=== PATIENT | male | born 1975 | race Caucasian/White ===

== ENCOUNTER 2016-08-21 11:05 | Emergency (ER) | payer MEDICARE ==
[2016-08-21] MEDS ORDERED: methylPREDNISolone ACETATE 40 MG/ML VIAL IM ONE (12:01)
--- NOTE | 2016-08-21 12:06 | ED.PDOC ---
History of Present Illness - General Chief Complaint: ENT Problem Stated Complaint: right ear pain and facial pain Time Seen by Provider: 08/21/16 12:01 Source: patient, RN notes reviewed, Vital Signs reviewed Exam Limitations: no limitations - History of Present Illness Initial Comments: This 41 y/o male comes in complaining of right ear pain and facial pain. He has a history of allergies and has received prednisone for this. He does better when he is taking the prednisone, however once he is finished, the symptoms return. He has been on antibiotics recently. He is a poor historian and timing of medications and what he is on is difficult to ascertain. His right ear feels like there is fluid behind it and his upper mouth hurts. He has tried Flonase, however when he takes it, his throat feels like it is closing up. He denies any shortness of breath or fever/chills. Timing/Duration: intermittent Severity: severe Improving Factors: medication - prednisone Worsening Factors: nothing Associated Symptoms: other - ear pain, facial pain Allergies/Adverse Reactions: Allergies Metformin Allergy (Severe, Verified 09/05/15 13:37) Other causes GI bleeding after prolonged use Shellfish Allergy Allergy (Severe, Verified 09/05/15 13:37) Anaphylaxis Bee Venom Allergy (Verified 09/05/15 13:37) Other swelling Home Medications: Ambulatory Orders Allopurinol [Zyloprim] 100 mg PO DAILY #30 tab 03/20/15 Metoprolol Succinate [Metoprolol Succinate ER] 100 mg PO BEDTIME 05/22/15 Alprazolam [Xanax] 1 mg PO DAILY 09/05/15 Pantoprazole Sodium [Protonix] 40 mg PO DAILY 09/05/15 Azelastine Nasal [place] [Astelin Nasal [place]] 30 ml CHARLES BID PRN #1 bttl 08/21/16 Hydroxychloroquine Sulfate [Hydroxychloroquine Sulfat] 08/21/16 Methotrexate Sodium [Methotrexate] 2.5 mg PO 08/21/16 Review of Systems - Review of Systems Constitutional: States: no symptoms reported. Denies: chills, fever EENTM: States: ear pain, nose congestion Respiratory: States: no symptoms reported. Denies: short of breath Cardiology: States: no symptoms reported. Denies: chest pain Gastrointestinal/Abdominal: States: no symptoms reported. Denies: constipation , diarrhea, nausea, vomiting Genitourinary: States: no symptoms reported. Denies: dysuria Musculoskeletal: States: joint pain, muscle pain, muscle stiffness Skin: States: no symptoms reported Neurological: States: no symptoms reported Endocrine: States: no symptoms reported Hematologic/Lymphatic: States: other - autoimmune disorder Past Medical History (General) - Patient Medical History Hx Seizures: No Hx Stroke: No Hx Dementia: No Hx Asthma: No Hx of COPD: No Hx Cardiac Disorders: No Hx Congestive Heart Failure: No Hx Pacemaker: No Hx Hypertension: No Hx Thyroid Disease: No Hx Diabetes: No Hx Gastroesophageal Reflux: No Hx Renal Disease: No Hx Cancer: No Hx of HIV: No Hx Hepatitis C: No Hx MRSA: No Surgical History: other - Vaccination History Hx Tetanus, Diphtheria Vaccination: Yes Hx Influenza Vaccination: Yes Hx Pneumococcal Vaccination: Yes Immunizations Up to Date: Yes - Social History Hx Tobacco Use: No Hx Chewing Tobacco Use: No Hx Alcohol Use: No Hx Substance Use: No Hx Substance Use Treatment: No Hx Depression: No Feels Threatened In Home Enviroment: No Feels Threatened In a Relationship: No Hx Physical Abuse: No Hx Emotional Abuse: No Hx Suspected Abuse: No - Female History Patient is a Female of Child Bearing Age (10 -59 yrs old): No Patient : No Family Medical History - Family History Father Living Status: Hx Family Asthma: No Hx Family Congestive Heart Failure: Yes Hx Family Hypertension: Yes Hx Family Diabetes: Yes Physical Exam - Physical Exam General Appearance: Alert, No apparent distress, Obese Eye Exam: bilateral normal Ears, Nose, Throat: hearing grossly normal, abnormal TM (R) - + serous fluid behind TM, abnormal TM (L) - occluded by cerumen, nasal congestion, other - No sinus tenderness Neck: non-tender, full range of motion, normal inspection - No LAD Respiratory: lungs clear, normal breath sounds, no respiratory distress Cardiovascular/Chest: normal peripheral pulses, regular rate, rhythm, no edema, no murmur Gastrointestinal/Abdominal: normal bowel sounds, non tender, soft Extremity: normal range of motion Neurologic: alert, normal mood/affect, oriented x 3 Skin Exam: normal color, warm/dry Progress - Results/Orders Results/Orders: 08/21/16 11:12 Temperature 98 F Pulse Rate [ 82 Left Radial] Respiratory 18 Rate Blood Pressure 153/98 [Left Arm] O2 Sat by Pulse 98 Oximetry Departure - Departure Clinical Impression: Seasonal allergies Allergic rhinitis Qualifiers: Allergic rhinitis type: unspecified Qualifier Code: (J30.9) Allergic rhinitis, unspecified Time of Disposition: 12:18 Disposition: Discharge to Home or Self Care Departure Forms: ED Discharge - Pt. Copy, Patient Portal Self Enrollment Instructions: Allergic Rhinitis, DI for Allergic Rhinitis Prescriptions: Azelastine Nasal [place] [Astelin Nasal [place]] 30 ml CHARLES BID PRN #1 bttl PRN Reason: Rhinitis Home Medications: Ambulatory Orders Allopurinol [Zyloprim] 100 mg PO DAILY #30 tab 03/20/15 Metoprolol Succinate [Metoprolol Succinate ER] 100 mg PO BEDTIME 05/22/15 Alprazolam [Xanax] 1 mg PO DAILY 09/05/15 Pantoprazole Sodium [Protonix] 40 mg PO DAILY 09/05/15 Azelastine Nasal [place] [Astelin Nasal [place]] 30 ml CHARLES BID PRN #1 bttl 08/21/16 Hydroxychloroquine Sulfate [Hydroxychloroquine Sulfat] 08/21/16 Methotrexate Sodium [Methotrexate] 2.5 mg PO 08/21/16 Additional Instructions: NetiPot - use twice daily. Use distilled water to mix saline packet. Zyrtec 10 mg Daily Recommend referral to behavioral health case manager Follow up with PCP if symptoms persist or ED if symptoms worsen.
[2016-08-21 12:26] VITALS: BP 153/92; TEMP 98.4; O2SAT 97
== END 2016-08-21 12:24 | disposition home or self-care (01) ==
LOC: ER 11:05
DX: J30.9 Allergic rhinitis, unspecified (principal); Z88.8 Allergy status to other drugs, medicaments and biological substances; Z91.013 Allergy to seafood; Z91.030 Bee allergy status; Z79.899 Other long term (current) drug therapy

== ENCOUNTER 2017-04-21 12:46 | Emergency (ER) | payer MEDICARE ==
[2017-04-21] MEDS ORDERED: LIDOCAINE VIS-MYLANTA 30 ML UD PO ONE ×2 (12:58→13:03)
[2017-04-21] MEDS ORDERED: HYDROmorphone HCL INJ 2 MG/ML VIAL IV ONE (13:02)
[2017-04-21] MEDS ORDERED: ONDANSETRON INJ 4 MG/2 ML VIAL IV ONE (13:02)
--- NOTE | 2017-04-21 13:06 | ED.PDOC ---
History of Present Illness - General Time Seen by Provider: 04/21/17 12:50 Source: patient Exam Limitations: no limitations - History of Present Illness Initial Comments: the patient is a 42-year-old male presenting to the emergency room secondary to acute onset of chest pain along with shortness of breath and associatedleft upper abdominal pain with nausea and vomiting just prior to arrival. The patient reports the discomfort started when he was getting out of his van. He was not doing anything stressful. He had not eaten lunch yet. He checked his blood pressure when he started feeling bad and it was elevated in the 180s. No syncope but he did get diaphoretic. Upon arrival EMS gave him 2 nitroglycerin and the dose of aspirin neither of which seemed to have helped his symptoms. He reports the pain is still severe currently. He reports he threw up 3 times but no obvious blood in the vomitus. He has been passing gas and has been having bowel movements but no diarrhea. No recent fever. He does have a history of rheumatoid arthritis and was recently taken off methotrexate. He apparently was recently put on Celebrex. He does have a significant significant history of gastritisas well as gout. Timing/Duration: 1/2 hour Severity: severe Improving Factors: nothing Worsening Factors: nothing Associated Symptoms: chest pain, diaphoresis, loss of appetite, malaise, nausea/ vomiting, shortness of breath Allergies/Adverse Reactions: Allergies Bee Venom Allergy (Severe, Verified 04/21/17 13:28) Other swelling Metformin Allergy (Severe, Verified 09/05/15 13:37) Other causes GI bleeding after prolonged use Naproxen Allergy (Severe, Verified 04/21/17 13:28) Shellfish Allergy Allergy (Severe, Verified 09/05/15 13:37) Anaphylaxis Warfarin Allergy (Severe, Verified 04/21/17 13:33) Cephalexin [From Keflex] Allergy (Verified 04/21/17 13:38) Colchicine Allergy (Verified 04/21/17 13:38) Lisinopril Allergy (Verified 04/21/17 13:38) [place] Allergy (Verified 04/21/17 13:38) Ziprasidone [From Geodon] Allergy (Verified 04/21/17 13:38) Lettuce Allergy (Uncoded 04/21/17 13:38) mushrooms Allergy (Uncoded 04/21/17 13:38) Home Medications: Ambulatory Orders Allopurinol [Zyloprim] 100 mg PO DAILY #30 tab 03/20/15 Metoprolol Succinate [Metoprolol Succinate ER] 100 mg PO BEDTIME 05/22/15 Alprazolam [Xanax] 1 mg PO DAILY 09/05/15 Pantoprazole Tablet [Protonix] 40 mg PO DAILY 09/05/15 Azelastine Nasal [place] [Astelin Nasal [place]] 30 ml CHARLES BID PRN #1 bttl 08/21/16 Hydroxychloroquine Sulfate [Hydroxychloroquine Sulfat] 08/21/16 Methotrexate Sodium [Methotrexate] 2.5 mg PO 08/21/16 Famotidine 20 mg PO DAILY #30 tab 04/21/17 Ondansetron [Zofran Odt] 4 mg PO Q4H PRN #10 tab 04/21/17 Sucralfate Tab [Carafate Tab] 1 gm PO QID #120 tab 04/21/17 Review of Systems - Review of Systems Constitutional: States: diaphoresis, malaise, weakness EENTM: States: no symptoms reported Respiratory: States: short of breath Cardiology: States: chest pain Gastrointestinal/Abdominal: States: abdominal pain, nausea, vomiting Genitourinary: States: no symptoms reported Musculoskeletal: States: no symptoms reported Skin: States: no symptoms reported Neurological: States: no symptoms reported Endocrine: States: excessive sweating All other Systems: No Change from Baseline Past Medical History (General) - Patient Medical History Hx Seizures: No Hx Stroke: No Hx Dementia: No Hx Asthma: No Hx of COPD: No Hx Cardiac Disorders: No Hx Congestive Heart Failure: No Hx Pacemaker: No Hx Hypertension: No Hx Thyroid Disease: No Hx Diabetes: No Hx Gastroesophageal Reflux: No Hx Renal Disease: No Hx Cancer: No Hx of HIV: No Hx Hepatitis C: No Hx MRSA: No - Vaccination History Hx Tetanus, Diphtheria Vaccination: Yes Hx Influenza Vaccination: Yes Hx Pneumococcal Vaccination: Yes - Social History Hx Tobacco Use: No Hx Chewing Tobacco Use: No Hx Alcohol Use: No Hx Substance Use: No Hx Substance Use Treatment: No Hx Depression: No Hx Physical Abuse: No Hx Emotional Abuse: No Hx Suspected Abuse: No - Female History Patient : No Family Medical History - Family History Father Living Status: Hx Family Asthma: No Hx Family Congestive Heart Failure: Yes Hx Family Hypertension: Yes Hx Family Diabetes: Yes Physical Exam - Physical Exam General Appearance: Alert, Anxious, Obvious distress Eye Exam: bilateral normal Ears, Nose, Throat: hearing grossly normal, normal ENT inspection, normal pharynx Neck: non-tender, full range of motion Respiratory: lungs clear, normal breath sounds, no respiratory distress, no accessory muscle use, other - he patient does have left anterior and lateral chest walldiscomfort palpation. Cardiovascular/Chest: normal peripheral pulses, no edema, bradycardia - sinus Peripheral Pulses: radial,right: 2+, radial,left: 2+, dorsalis pedis,right: 2+, dorsalis pedis,left: 2+ Gastrointestinal/Abdominal: soft, other - eft upper quadrant and epigastric discomfort palpation that is very significant. 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 The patient received 2 sets of cardiac enzymes which were negative. EKG and x-rays were reassuring. Symptoms are consistent with gastritis and esophagitis as well as some pectoralis muscle spasm which is obvious on exam. He does have some mild hypokalemia which is possibly contributing. He was given a dose of potassium here. Symptoms have improved significantly with medications given. He also received a liter of IV fluids for very mild dehydration. He needs to keep himself well-hydrated. He will receive Carafate and Pepcid for the next month. He does need to do stretching exercises for the pectoralis muscle spasm. ER warnings were given for any significant recurrence. He does need follow-up with his primary care doctor later this coming week for a repeat potassium and he should also be set up in the near future for an exercise tolerance test for cardiac risk stratification. - Results/Orders Results/Orders: Laboratory Tests 04/21/17 04/21/17 04/21/17 13:02 13:09 13:09 WBC 12.0 H RBC 5.35 Hgb 15.7 Hct 46.6 MCV 87.2 MCH 29.4 MCHC 33.8 RDW 13.5 Plt Count 223 MPV 9.4 Absolute Neuts (auto) 6.90 H Absolute Lymphs (auto) 3.90 H Absolute Monos (auto) 0.90 H Absolute Eos (auto) 0.10 Absolute Basos (auto) 0.10 Neutrophils % 57.9 Lymphocytes % 32.9 Monocytes % 7.1 Eosinophils % 0.9 L Basophils % 1.2 PT INR PTT (SP) D-Dimer, Quantitative Sodium 136 Potassium 3.3 L Chloride 100 L Carbon Dioxide 25 Anion Gap 14.3 BUN 15 Creatinine 1.04 BUN/Creatinine Ratio 14.4 Random Glucose 246 H Serum Osmolality 281.0 Calcium 8.9 Magnesium 1.8 Total Bilirubin 0.7 AST 30 ALT 15 Alkaline Phosphatase 91 Creatine Kinase 51 CK-MB (CK-2) 0.7 CK-MB (CK-2) % Not Reportable Troponin I < 0.02 B-Natriuretic Peptide 16.9 Serum Total Protein 7.6 Albumin 4.2 Globulin 3.4 Albumin/Globulin Ratio 1.2 Amylase 15 L Lipase 20 L 04/21/17 04/21/17 13:09 15:39 WBC RBC Hgb Hct MCV MCH MCHC RDW Plt Count MPV Absolute Neuts (auto) Absolute Lymphs (auto) Absolute Monos (auto) Absolute Eos (auto) Absolute Basos (auto) Neutrophils % Lymphocytes % Monocytes % Eosinophils % Basophils % PT 10.6 INR 0.940 PTT (SP) 29.8 D-Dimer, Quantitative 279 H* Sodium Potassium Chloride Carbon Dioxide Anion Gap BUN Creatinine BUN/Creatinine Ratio Random Glucose Serum Osmolality Calcium Magnesium Total Bilirubin AST ALT Alkaline Phosphatase Creatine Kinase 46 CK-MB (CK-2) 0.8 CK-MB (CK-2) % Not Reportable Troponin I < 0.02 B-Natriuretic Peptide Serum Total Protein Albumin Globulin Albumin/Globulin Ratio Amylase Lipase sequential EKG show mild sinus bradycardia to normal sinus rhythm. Normal QRS width. Normal QT interval. No acute ST segment changes concerning for ischemia. Normal axis. Chest x-ray and abdominal x-ray showed no acute pathology. Departure - Departure Clinical Impression: Muscle spasm Gastritis Qualifiers: Gastritis type: unspecified gastritis Chronicity: acute Gastritis bleeding: without bleeding Qualified Code(s): K29.00 - Acute gastritis without bleeding Disposition: Discharge to Home or Self Care Condition: Fair Diet: bland diet Activity: increase activity as tolerated Referrals: JEEVAN WILSON,SEBAS Maldonado [Primary Care Provider] - 1-2 Weeks Prescriptions: Famotidine 20 mg PO DAILY #30 tab Ondansetron [Zofran Odt] 4 mg PO Q4H PRN #10 tab PRN Reason: Vomiting Sucralfate Tab [Carafate Tab] 1 gm PO QID #120 tab Home Medications: Ambulatory Orders Allopurinol [Zyloprim] 100 mg PO DAILY #30 tab 03/20/15 Metoprolol Succinate [Metoprolol Succinate ER] 100 mg PO BEDTIME 05/22/15 Alprazolam [Xanax] 1 mg PO DAILY 09/05/15 Pantoprazole Tablet [Protonix] 40 mg PO DAILY 09/05/15 Azelastine Nasal [place] [Astelin Nasal [place]] 30 ml CHARLES BID PRN #1 bttl 08/21/16 Hydroxychloroquine Sulfate [Hydroxychloroquine Sulfat] 08/21/16 Methotrexate Sodium [Methotrexate] 2.5 mg PO 08/21/16 Famotidine 20 mg PO DAILY #30 tab 04/21/17 Ondansetron [Zofran Odt] 4 mg PO Q4H PRN #10 tab 04/21/17 Sucralfate Tab [Carafate Tab] 1 gm PO QID #120 tab 04/21/17 Additional Instructions: the patient is a 42-year-old male presenting with left anterior chest wall pain and epigastric and left upper quadrant discomfort. The patient received 2 sets of cardiac enzymes which were negative. EKG and x-rays were reassuring. Symptoms are consistent with gastritis and esophagitis as well as some pectoralis muscle spasm which is obvious on exam. the Celebrex that he is taking may be contributing to the gastritis. He does have some mild hypokalemia which is possibly contributing. He was given a dose of potassium here. Symptoms have improved significantly with medications given. He also received a liter of IV fluids for very mild dehydration. He needs to keep himself well-hydrated. He will receive Carafate and Pepcid for the next month. He does need to do stretching exercises for the pectoralis muscle spasm. ER warnings were given for any significant recurrence. He does need follow-up with his primary care doctor later this coming week for a repeat potassium and he should also be set up in the near future for an exercise tolerance test for cardiac risk stratification.
--- NOTE | 2017-04-21 13:33 | RAD ---
PROCEDURE: Abdomen Series Clinical History: luq and substernal chest pain Indication: Same as above Comparison: None Technique: 4.0 views of the abdomen and pelvis and 1.0 view of the chest were done. Findings: There is no gross evidence of free air in the abdomen or the pelvis . The small and large bowel gas pattern does not show any evidence of obstruction, ileus or bowel wall thickening. There is no visualization of radiopaque calculi in the outline of the urinary tract. There are no discrete airspace infiltrates, pleural effusions or pneumothoraces. The cardiac mediastinal silhouette is within normal limits There is no significant constipation. Impression: There are no acute or significant findings in the chest, abdomen and pelvis Location of Interpretation: [id number] Electronically signed by: Arnulfo Tomas MD 04/21/2017 1:32 PM CDT Workstation: [id number]
[2017-04-21] MEDS ORDERED: POTASSIUM CHLORIDE ELIXIR 20 MEQ/15 ML UD PO ONE (13:41)
[2017-04-21 14:02] VITALS: TEMP 97.3
[2017-04-21] MEDS ORDERED: SUCRALFATE 1 GM/10 ML 1 GM UD PO ONE (14:02)
[2017-04-21] MEDS ORDERED: diazePAM 2 MG TAB PO ONE (14:02)
[2017-04-21] MEDS ORDERED: LACTATED RINGERS 1,000 ML IVS ONE (15:31)
[2017-04-21 17:05] VITALS: BP 152/92; O2SAT 97
== END 2017-04-21 17:05 | disposition home or self-care (01) ==
LOC: ER 12:46
DX: K29.00 Acute gastritis without bleeding (principal); M62.838 Other muscle spasm; R00.1 Bradycardia, unspecified; Z79.899 Other long term (current) drug therapy; Z88.8 Allergy status to other drugs, medicaments and biological substances; Z91.030 Bee allergy status; Z91.013 Allergy to seafood; Z91.018 Allergy to other foods
CPT/HCPCS: 36415; 74020; 80053; 82150; 82550; 82553; 83690; 83735; 83880; 84484; 85025; 85379; 85610; 85730; 93005; J1170; J2405; J7120